=== PATIENT | male | born 1990 | race Caucasian/White ===

== ENCOUNTER 2019-08-15 20:03 | Emergency (ER) | payer SELFPAY ==
[2019-08-15 20:53] VITALS: BP 133/79; PULSE 95; RESP 16; TEMP 38; O2SAT 97; BMI 29.0
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
[2019-08-15] MEDS: tetanus-dipt-pertussis 0.5 mL SDV IM (23:40)
[2019-08-15] MEDS: lidocaine 1% INJ 20 mL INJECTION (23:40)
[2019-08-16 00:56] VITALS: BP 143/82; PULSE 100; RESP 16; TEMP 37.5; O2SAT 97
[2019-08-16] MEDS: acetaminophen 500 mg Tablet 1000 MG PO (01:03)
== END 2019-08-16 01:05 | disposition home or self-care (01) ==
PROVIDERS: Emergency Provider Nurse Practitioner Family
DX: S01.01XA Laceration without foreign body of scalp, initial encounter (principal); S43.101A Unspecified dislocation of right acromioclavicular joint, initial encounter; V86.55XA Driver of 3- or 4- wheeled all-terrain vehicle (ATV) injured in nontraffic accident, initial encounter; Z23 Encounter for immunization
CPT/HCPCS: 12004; 12345; 70450; 73030; 90471; 90715; 99283; J2001